=== PATIENT | male | born 1975 | race Two or more races ===

== ENCOUNTER 2018-08-23 11:56 | Emergency (ER) | payer SELFPAY ==
--- NOTE | 2018-08-23 12:21 | PDOC ---
Rapid Medical Evaluation Chief Complaint: Weakness Time Seen by Provider: 08/23/18 12:20 Medical Evaluation: Allergies Allergy/AdvReac Type Severity Reaction Status Date / Time No Known Allergies Allergy Verified 08/23/18 12:13 08/23/18 12:21 I have performed a brief in-person evaluation of this patient. The patient presents with a chief complaint of: weakness Pertinent physical exam findings:stable and in NAD, non-focal I have ordered the following:labs The patient will proceed to the ED for further evaluation.
[2018-08-23 12:23] VITALS: BP 132/78; PULSE 94; TEMP 98.6; BMI 29.9
[2018-08-23 12:44] LABS: BASO % 0.7 % (0-2.0); EOS % 1.8 % (0-4.5); HEMATOCRIT 36.8 % (35.4-49); HEMOGLOBIN 12.4 GM/dL (11.7-16.9); LYMPH % 24.6 % (8-40); MCH 27.3 pg (25.7-33.7); MCHC 33.8 g/dl (32.0-35.9); MEAN CELL VOLUME 80.7 fl (80-96); MEAN PLT VOLUME 7.8 fl (7.5-11.1); MONO % 9.5 % (3.8-10.2); NEUT % 63.4 % (42.8-82.8); PLATELET COUNT 284 K/MM3 (134-434); RBC 4.55 M/mm3 (4.00-5.60); RDW 15.8 % (11.9-15.9); WHITE BLOOD COUNT 9.3 K/mm3 (4.0-10.0)
[2018-08-23 13:16] LABS: ALBUMIN 3.9 g/dl (3.4-5.0); BILIRUBIN,TOTAL 0.4 mg/dL (0.2-1); BLOOD UREA NITROGEN 12.2 mg/dL (7-18); CALCIUM 8.6 mg/dL (8.5-10.1); CREATININE 1.2 mg/dL (0.55-1.3); POTASSIUM 3.6 mmol/L (3.5-5.1); TOT PROT 7.5 g/dl (6.4-8.2)
--- NOTE | 2018-08-23 13:22 | PDOC ---
History of Present Illness - General Chief Complaint: Weakness Stated Complaint: WEAKNESS Time Seen by Provider: 08/23/18 12:20 History Source: Patient Exam Limitations: No Limitations - History of Present Illness Initial Comments: 08/23/18 12:16 42-year-old male presents to ED with complaints of generalized weakness fatigue and intermittent blurry vision since this afternoon. Patient states was out all night and when he went home he symptoms began. Patient denies headache, current blurry vision, chest pain, shortness of breath, or nausea. Patient denies drug or alcohol use Timing/Duration: 1-3 hours Severity: mild Associated Symptoms: reports: weakness Past History - Travel Traveled outside of the country in the last 30 days: No Close contact w/someone who was outside of country & ill: No - Past Medical History Allergies/Adverse Reactions: Allergies Allergy/AdvReac Type Severity Reaction Status Date / Time No Known Allergies Allergy Verified 08/23/18 12:13 Home Medications: Ambulatory Orders NK [No Known Home Medication] 08/23/18 COPD: No - Suicide/Smoking/Psychosocial Hx Smoking History: Never smoked Have you smoked in the past 12 months: No Information on smoking cessation initiated: No Hx Alcohol Use: No Drug/Substance Use Hx: No Patient Lives Alone: Yes Lives with/in: lives alone Review of Systems - Review of Systems Able to Perform ROS?: Yes Constitutional: Yes: Weakness HEENTM: Yes: Blurred Vision Respiratory: No: Symptoms reported Cardiac (ROS): No: Symptoms Reported ABD/GI: No: Symptoms Reported : No: Symptoms Reported Musculoskeletal: No: Symptoms Reported Integumentary: No: Symptoms Reported Neurological: Yes: Weakness Hematologic/Lymphatic: No: Symptoms Reported *Physical Exam - Vital Signs Last Vital Signs Temp Pulse Resp BP Pulse Ox 98.6 F 94 H 16 132/78 100 08/23/18 12:18 08/23/18 12:18 08/23/18 12:18 08/23/18 12:18 08/23/18 12:18 - Physical Exam General Appearance: Yes: Nourished, Appropriately Dressed, Intoxicated ( behavior consistent with illicit drug use). No: Apparent Distress HEENT: positive: Other (Eyes glassy red and close intermittently during conversation). negative: Pale Conjunctivae Neck: positive: Supple Respiratory/Chest: positive: Lungs Clear, Normal Breath Sounds. negative: Respiratory Distress, Accessory Muscle Use Cardiovascular: positive: Regular Rhythm, Regular Rate. negative: Murmur Integumentary: positive: Normal Color, Warm, Moist Neurologic: positive: Motor Strength 5/5. negative: Normal Mood/Affect (groggy falling asleep during history of present illness and then awakes laughing and smiling inconsistent with conversation) ED Treatment Course - LABORATORY CBC & Chemistry Diagram: 08/23/18 12:39 08/23/18 12:39 - ADDITIONAL ORDERS Additional order review: Laboratory Results 08/23/18 08/23/18 12:39 12:39 Sodium 142 Potassium 3.6 Chloride 105 Carbon Dioxide 30 Anion Gap 7 L BUN 12.2 Creatinine 1.2 Est GFR (CKD-EPI)AfAm 85.92 Est GFR (CKD-EPI)NonAf 74.14 Random Glucose 130 H Calcium 8.6 Total Bilirubin 0.4 AST 12 L ALT 18 Alkaline Phosphatase 87 Total Protein 7.5 Albumin 3.9 Alcohol, Quantitative < 3.0 08/23/18 12:39 RBC 4.55 MCV 80.7 MCHC 33.8 RDW 15.8 MPV 7.8 Neutrophils % 63.4 Lymphocytes % 24.6 Monocytes % 9.5 Eosinophils % 1.8 Basophils % 0.7 Medical Decision Making - Medical Decision Making 08/23/18 12:20 Chief complaint: Complaints of weakness employee vision after being out all night but denies drug use Exam. Patient appears to be impaired by illicit drug use vital signs stable Plan labs and urine ordered including alcohol and drug levels
== END 2018-08-23 13:47 | disposition left against medical advice (07) ==
LOC: JER 11:56
DX: R53.1 Weakness (principal)
CPT/HCPCS: 36415; 80053; 80307; 85025; 99282-25